=== PATIENT | male | born 1975 | race Caucasian/White ===

== ENCOUNTER 2022-05-07 19:19 | Emergency (ER) | payer OTHER ==
[~2022-05-07] VITALS: Ht 190.5 cm; Wt 90.9 kg
[2022-05-07 19:26] VITALS: BP 120/76
[2022-05-07] MEDS ORDERED: DOXYCYCLINE HYCLATE 100 MG TABLET PO ONE (20:00)
[2022-05-07] MEDS ORDERED: DOXY-354 PO (20:16)
== END 2022-05-07 20:30 | disposition home or self-care (01) ==
LOC: EMS 19:28
DX: S61.210A Laceration without foreign body of right index finger without damage to nail, initial encounter (principal); W27.8XXA Contact with other nonpowered hand tool, initial encounter; Y93.89 Activity, other specified; Y92.89 Other specified places as the place of occurrence of the external cause; Y99.8 Other external cause status
CPT/HCPCS: 12002; 99283

== ENCOUNTER 2023-01-15 10:51 | Emergency (ER) | payer OTHER ==
[~2023-01-15] VITALS: Ht 190.5 cm; Wt 93.2 kg
[~2023-01-15 10:51] MED LIST: DOXY-354 PO
[2023-01-15] MEDS ORDERED: AMOX1TAB16 PO (11:49)
[2023-01-15] MEDS ORDERED: AMOX TR/POT CLAV 875 MG/125 MG TABLET PO ONE (12:00)
[2023-01-15 12:03] VITALS: BP 127/76
== END 2023-01-15 12:06 | disposition home or self-care (01) ==
LOC: EMS 10:53
DX: S60.512A Abrasion of left hand, initial encounter (principal); S60.511A Abrasion of right hand, initial encounter; S80.812A Abrasion, left lower leg, initial encounter; W55.03XA Scratched by cat, initial encounter; Y93.89 Activity, other specified; Y92.89 Other specified places as the place of occurrence of the external cause; Y99.8 Other external cause status
CPT/HCPCS: 99283